=== PATIENT | female | born 1950 | race Caucasian/White ===

== ENCOUNTER 2016-11-21 10:25 | Day surgery (SDC) | payer BC ==
[~2016-11-21] VITALS: Ht 160 cm; Wt 56.8 kg
[~2016-11-21 10:25] MED LIST: ONDANSETRON 4MG/2ML VIAL (J2405) As Ordered ONE
[2016-11-21] MEDS ORDERED: LEVO88TA3 PO (10:43)
[2016-11-21] MEDS ORDERED: BRIN1OPH OU (10:43)
[2016-11-21] MEDS ORDERED: AMLO5TAB2 PO (10:43)
[2016-11-21] MEDS ORDERED: BIMA01SOL OU (10:43)
[2016-11-21] MEDS ORDERED: ONDANSETRON 4MG/2ML VIAL (J2405) IV ONE (10:45)
[2016-11-21] MEDS ORDERED: MORPHINE 4 MG/ML 1ML SYRINGE IV ONE (10:45)
[2016-11-21] MEDS ORDERED: HYDROmorphone HCL 1 MG/ML SYRINGE (J1170) IV ONE (11:00)
[2016-11-21] MEDS ORDERED: MOBI4TAB PO (11:50)
--- NOTE | 2016-11-21 12:04 | REP ---
REASON: Pain after trauma. See the ankle report. The bones are demineralized. There are no additional fractures. Signed by Ramana Scott DO 11/21/2016 12:42 P
--- NOTE | 2016-11-21 12:04 | REP ---
REASON: Pain after trauma. PRIORS: None. Comminuted distal fibular and tibial fractures are present with a medial subluxation of the mortise. There is no lateral view on the limited exam. IMPRESSION: Comminuted distal fibular and tibial fractures with medial displacement and medial subluxation of the mortise. Signed by Ramana Scott DO 11/21/2016 12:42 P
[2016-11-21] MEDS ORDERED: LIDOCAINE 1% MDV 20ML VIAL As Ordered ONE (12:41)
[2016-11-21] MEDS ORDERED: LIDOCAINE 1% MDV 20ML VIAL SC ONE (12:45)
[2016-11-21] MEDS ORDERED: AMLO10TA2 PO (13:13)
--- NOTE | 2016-11-21 14:26 | REP ---
REASON: Plain film finding of complicated ankle fracture. There is a comminuted distal tibial fracture with lateral tibiotalar subluxation. The comminuted distal tibial fracture is seen in conjunction with a comminuted medial malleolar component and a comminuted posterior malleolar component along with posterior displacement of the posterior tibial component and a comminuted distal fibular fracture, which is partially impacted. The tibial intra-articular component measures 1.4 cm in width. There is advanced soft tissue swelling. IMPRESSION: Complex distal tibial fracture subluxation with distal fibular fracture as described above. Signed by Ramana Scott DO 11/21/2016 03:13 P
[2016-11-21] MEDS ORDERED: MORPHINE 4 MG/ML 1ML SYRINGE IV PRN (17:00)
[2016-11-21] MEDS ORDERED: PERCOCET 5MG/325MG TAB PO PRN ×4 (17:00→23:00)
[2016-11-21 17:15] VITALS: BP 146/72
[2016-11-21 17:45] VITALS: BP 142/68
[2016-11-21] MEDS ORDERED: BUPIVACAINE/EPIN 0.25% 30 ML VIAL As Ordered ONE (19:21)
--- NOTE | 2016-11-21 19:50 | HPE ---
DATE OF ADMISSION: 11/21/2016 CHIEF COMPLAINT: Right ankle fracture. HISTORY OF PRESENT ILLNESS: Alejandra Jacinto is a 66-year-old female who sustained a low energy mechanical fall from standing height earlier today after tripping over her purse, resulting in a right trimalleolar ankle fracture. She had immediate pain and deformity and inability to bear weight and presented to the emergency department for evaluation. She denies any antecedent calf pain, chest pain, shortness of breath, headaches, dizziness or nausea. Patient denies any numbness, tingling or burning sensations about the right lower extremity and no other complaints. PAST MEDICAL HISTORY: 1. Hypothyroidism. 2. Hypertension. MEDICATIONS: - Norvasc 10 mg by mouth daily - Synthroid ALLERGIES: No known drug allergies. PAST SURGICAL HISTORY: None. FAMILY HISTORY: Noncontributory. SOCIAL HISTORY: Patient lives in [place] with her . She is unemployed. She does not smoke, drink or use illicit drugs. REVIEW OF SYSTEMS: A 14-point review of systems was reviewed and is unremarkable. PHYSICAL EXAMINATION: VITAL SIGNS: Temperature 97.7, heart rate 68, respirations 18, blood pressure 142/68, oxygen saturation 97% on room air. GENERAL: This is a well-nourished female who appears her stated age in no acute distress. NEUROLOGIC: She is awake, alert and oriented to person, place and time. She has intact sensory and motor function in her right lower extremity tibial, sural saphenous, superficial peroneal and deep peroneal nerve distributions. CARDIOVASCULAR: She has a 2+ dorsalis pedis (DP) and posterior tibial (PT) pulse and brisk capillary refill of all digits of the right lower extremity. MUSCULOSKELETAL: Physical exam of the right ankle demonstrates no open wounds or abrasions or obvious deformity about the right ankle. Patient has no active range of motion about the right ankle secondary to pain. Patient is able to actually flex and extend all toes. She has no knee or hip pain. She is maximally tender at the lateral aspect of the right ankle. Plate radiographs of the right ankle demonstrated displaced trimalleolar ankle fracture dislocation. ASSESSMENT: This is a 66-year-old female with right ankle trimalleolar fracture dislocation. PLAN: After patient underwent a closed reduction in the emergency room under ankle block with 5 mL of 1% lidocaine without epinephrine, she was placed into a well-padded L&U splint. I obtained a post reduction CT, which demonstrated a large posterior malleolar fragment approximating 30-40% of the width of the distal tibia. I counseled the patient on the risks, benefits, indications and alternatives of operative versus nonoperative management of this ankle fracture and recommended operative treatment. I also counseled the patient that I will be her operating surgeon, but her followup care will be conducted by the [facility]. Patient expressed understanding of this arrangement, provided informed consent for right ankle open reduction internal fixation. Will proceed to surgery later today and patient will likely be discharged to home in the morning after ambulating with physical therapy. BERENICE
[2016-11-21] MEDS ORDERED: ceFAZolin 2 GM/D5W 50 ML IV BAG (J0690) As Ordered ONE (19:51)
[2016-11-21] MEDS ORDERED: METOCLOPRAMIDE INJ 10MG/2ML VIAL (J2765) As Ordered ONE (20:07)
[2016-11-21] MEDS ORDERED: ROCURONIUM BROMIDE 50 MG/5 ML VIAL/SYRINGE As Ordered ONE (20:07)
[2016-11-21] MEDS ORDERED: fentaNYL 100 MCG/2 ML INJECTION (J3010) As Ordered ONE ×3 (20:07→21:16)
[2016-11-21] MEDS ORDERED: PROPOFOL 200 MG/20 ML VIAL As Ordered ONE (20:07)
[2016-11-21] MEDS ORDERED: LIDOCAINE 2% INJ 100 MG/5 ML SDV (FOR ANES.) As Ordered ONE (20:07)
[2016-11-21] MEDS ORDERED: MIDAZOLAM INJ 2 MG/2 ML VIAL (J2250) As Ordered ONE (20:07)
[2016-11-21] MEDS ORDERED: ONDANSETRON 4MG/2ML VIAL (J2405) As Ordered ONE (20:07)
[2016-11-21] MEDS ORDERED: ePHEDrine SULFATE 25 MG/5 ML(5MG/ML) SYRINGE As Ordered ONE (20:22)
[2016-11-21] MEDS: NAPROXEN 250 MG TAB PO SCH (21:00)
[2016-11-21] MEDS ORDERED: LR 1,000 ML IV SCH (22:45)
[2016-11-21] MEDS ORDERED: fentaNYL 100 MCG/2 ML INJECTION (J3010) IV PRN (22:45)
[2016-11-21] MEDS ORDERED: ONDANSETRON 4MG/2ML VIAL (J2405) IV PRN ×2 (22:45)
[2016-11-21] MEDS ORDERED: METOCLOPRAMIDE INJ 10MG/2ML VIAL (J2765) IV PRN (22:45)
[2016-11-21] MEDS ORDERED: MEPERIDINE INJ 25 MG/ML VIAL (J2175) IV PRN (22:45)
[2016-11-21 23:20] VITALS: BP 139/88
[2016-11-21 23:50] VITALS: BP 134/70
[2016-11-22 00:50] VITALS: BP 121/60
[2016-11-22 01:50] VITALS: BP 114/56
--- NOTE | 2016-11-22 01:50 | REP ---
Clinical: Status post fracture fixation. Technique: Portable AP, lateral, oblique views of the right ankle. Findings: The patient is status post open reduction and fixation for trimalleolar ankle fractures. Satisfactory reduction and hardware placement is appreciated. Overlying soft tissue swelling and postsurgical changes noted. Impression: Satisfactory open reduction and fixation. Signed by Gregory Arzate MD 11/22/2016 01:42 A
[2016-11-22 02:50] VITALS: BP 139/57
[2016-11-22 03:50] VITALS: BP 112/59
--- NOTE | 2016-11-22 07:22 | RO ---
DATE OF PROCEDURE: 11/21/2016 PREOPERATIVE DIAGNOSIS: Right trimalleolar ankle fracture. POSTOPERATIVE DIAGNOSIS: Right trimalleolar ankle fracture. PROCEDURE: Right ankle open reduction, internal fixation. SURGEON: Silverio Villeda MD EDUCATION ADMINISTRATIVE ASSISTANT: MAXINE Sagastume ANESTHESIA: Per Dr. Rowley. Anesthesia given general endotracheal anesthesia. Total tourniquet time was 100 minutes, 250 mmHg right thigh. ANTIBIOTICS: 2 grams Ancef given within 1 hour of incision. IMPLANTS USED: Synthes 8-hole 1/3 tubular plate for the fibula with two 16 mm and one 14 mm x 3.5mm cortex screws and a 20 mm and 24 mm x 3.5 mm locking screw. The posterior malleolar fragment had a 5-hole 1/3 tubular plate with a 28 mm, 30 mm and 36 mm x 3.5mm cortex screws and the medial malleolus was fixed with one 40 mm and one 46 mm 4.0 partially threaded cancellous screws. MATERIAL SENT TO LAB: None. COMPLICATIONS: None. INDICATION FOR PROCEDURE: Alejandra Jacinto is a 66-year-old, otherwise healthy female who sustained a mechanical fall from standing high resulting in a right trimalleolar ankle fracture dislocation. A post reduction CT demonstrated the posterior malleolar fragment which constituted greater than one-third of the AP diameter of the distal tibia. Therefore, I elected to directly fix the posterior malleolar fragment. I counseled the patient on the risks, benefits, indications , and alternatives of operative versus nonoperative management of her right trimalleolar ankle fracture dislocation, including counseling the patient on the fact that I will be her operating surgeon but her followup care will be conducted by [facility]. Patient expressed understanding with this arrangement and provided informed consent for right ankle open reduction internal fixation. INTRAOPERATIVE FINDINGS: There was significant posterior comminution both the fibula and posterior malleolar fragment. However, they were both able to be anatomically reduced and the ankle was stable on Cotton test after fixation of the trimalleolar fracture. DESCRIPTION OF PROCEDURE: The patient was positively identified in the preop holding area. The surgical site was marked. She was brought to the operating room where she placed under general endotracheal anesthesia. She was then placed in the prone position with all bony prominences appropriately padded. Sequential compressive device (SCD) was placed on the nonoperative extremity for deep venous thrombosis (DVT) prophylaxis. She was then prepped and draped in the usual sterile fashion. Final time-out was performed. I made a posterolateral approach for the fibula and posterior malleolar fragments. I dissected through skin and subcutaneous tissue. I identified the small saphenous vein and sural nerve, which were retracted medially and protected throughout the remainder of the case. I identified the interval between the peroneal tendons and the flexor digitorum longus (FDL) and dissected into this interval and identified the fibular fracture and the posterior malleolar fracture fragments. There was significant comminution in the posterior aspect of the fibular fracture. However, I was able to get a read on length and elected to perform a bridge plating construct. I applied an 8-hole 1/3 tubular plate that bridged the fracture site and placed a single smooth K-wire to maintain the length while the plate was applied. I applied screws proximally and distally and confirmed anatomic reduction with scientology of length alignment and rotation of the fibula after these screws were applied. I then placed two additional 3.5 mm cortex screws proximally and two 3.5 mm locking screws distally in the fibula. After this was completed, I then turned attention to the posterior malleolar fragment where I placed a 5-hole 1/3 tubular plate in a buttress fashion after obtaining anatomic reduction of the joint surface. The plate was used a reduction tool. I placed one screw in the axilla and on c-arm fluoroscopy confirmed that the posterior malleolar fragment was anatomically reduced. I then placed an additional screw above the axilla and then one in the distal fragment for rotational control. After anatomic reduction of the posterior malleolus, I then turned attention to the medial malleolus. A 3 cm incision, curvilinear was made, centered over the medial malleolar fracture, dissected through skin and subcutaneous tissue and identified the medial malleolus and the fracture. Some debris was cleared from the fracture site. I used a dental pick to obtain anatomic reduction. I then placed two smooth K-wires to hold the medial malleolar fragment in place. I confirmed on C-arm fluoroscopy that the trajectories would be within the anterior and middle caliculus and not penetrate the ankle joint. After using the cannulated opening drill, measured the screws to 40 and 46 mm in length. I then placed 40 and 46 mm screws that were 4.0 cancellous partially threaded anteriorly and posteriorly, respectively for medial malleolar fixation. I performed a Cotton test and confirmed stability of the ankle mortise after fixation of the trimalleolar ankle fracture. At this point, final fluoroscopic images were taken. I then thoroughly irrigated the wounds with normal saline and closed in layers with #2-0 Vicryl for the subcutaneous layer for both wounds and the medial sided wound was closed with #3-0 nylon horizontal mattress interrupted sutures and the posterolateral wound was closed with running #3-0 nylon horizontal mattress type suture. Sterile dressings were applied and the tourniquet was let down at 100 minutes. The patient was placed into a well padded L&U splint. This ended the procedure. I was present and scrubbed in for all critical portions of the case. POSTOPERATIVE PLAN: Patient will be non-weightbearing. She will be admitted for observation overnight and discharged home in the morning after clears physical therapy. She will be placed on Aspirin for DVT prophylaxis postoperatively. BERENICE
--- NOTE | 2016-11-22 07:41 | REP ---
Right ankle intraoperative fluoroscopic views during internal fixation of nine views: The internal fixation procedure is performed by the orthopedic surgeon, Dr. Villeda. The trimalleolar ankle fracture dislocation is stabilized with two compression plates and two orthopedic screws. The hardware and fracture fragments are maintained in satisfactory position alignment on all views. Fluoroscopic exposure time is 1 minute 42 seconds. Fluoroscopic images are performed with last image hold technology and require no additional radiation. Signed by Blaine Wilcox MD 11/22/2016 07:32 A
[2016-11-22] MEDS: NAPROXEN 250 MG TAB PO SCH (09:00)
[2016-11-22] MEDS ORDERED: ASPI325T PO (09:41)
[2016-11-22] MEDS ORDERED: PERC5TAB12 PO (09:41)
[2016-11-22 10:00] VITALS: BP 127/60
== END 2016-11-22 12:10 | disposition home or self-care (01) ==
LOC: M ED 10:25 → M SDC 13:00 → M MS5PR 16:25 → M SDC 11-22 12:10
PROVIDERS: ATTEND Orthopaedic Surgery
DX: S82.851A Displaced trimalleolar fracture of right lower leg, initial encounter for closed fracture (principal); W10.9XXA Fall (on) (from) unspecified stairs and steps, initial encounter; Y93.89 Activity, other specified; Y92.89 Other specified places as the place of occurrence of the external cause; Y99.8 Other external cause status; I10 Essential (primary) hypertension; E03.9 Hypothyroidism, unspecified; H40.9 Unspecified glaucoma; Z79.899 Other long term (current) drug therapy
CPT/HCPCS: 27814; 73610; 73630; 73700; 96374; 96375; 96376; 97162; 99284; C1776; J0690; J1170; J2250; J2405; J2765; J3010

== ENCOUNTER → 2017-09-04 | Outpatient (REF) | payer BC | LOC: M LAB REF 09:03 | DX: N39.0 Urinary tract infection, site not specified (principal) | CPT/HCPCS: 87086 ==